=== PATIENT | female | born 1980 | race Caucasian/White ===

== ENCOUNTER 2021-04-24 09:46 | Outpatient (CLI) | payer BC, SELFPAY ==
--- NOTE | 2021-04-24 10:45 | EST_ITS ---
Patient Info Name: Radha King Age: 40 years : 1980 Gender: Female Ht: 64 in Wt: 180 lbs BSA: 1.95 m2 Exam Date: 04/24/2021 11:18 AM Exam Location: [facility] Stress Patient Status: Outpatient Admit Date: 04/24/2021 Staff Ordering Physician: Estela Dennis NP Attending Provider: Estela Dennis NP Exercise Technologist: Ann Marie Bills CT Exercise Physician: Elvis Doss DO Exam Type: CA stress test treadmill Study Info Indications R94.31 - Abnormal electrocardiogram ECG EKG A treadmill exercise stress test was performed. Summary 1. 1. Negative Edgar exercise stress test for ischemic ST changes by ECG criteria. 2. 2. Good functional capacity, achieving 10 METs of workload. 3. 3. Appropriate HR response to exercise. 4. 4. Appropriate HR recovery at 1 minute post exercise. 5. 5. No imaging with stress testing. 6. 6. Patient informed of the above results. Protocol: Edgar Stress ECG Details Stage: REST Duration (min): 2 min : 16 sec Speed (mph): 0.0 Grade (%): 0 HR (bpm): 68 SBP (mmHg): 103 DBP (mmHg): 79 METS: --- Stage: REST Duration (min): 5 min : 16 sec Speed (mph): 0.0 Grade (%): 0 HR (bpm): --- SBP (mmHg): 103 DBP (mmHg): 79 METS: --- Stage: STAGE 1 Duration (min): 1 min : 0 sec Speed (mph): 1.7 Grade (%): 10 HR (bpm): 107 SBP (mmHg): 103 DBP (mmHg): 79 METS: --- Stage: STAGE 1 Duration (min): 2 min : 0 sec Speed (mph): 1.7 Grade (%): 10 HR (bpm): 111 SBP (mmHg): 103 DBP (mmHg): 79 METS: --- Stage: STAGE 1 Duration (min): 3 min : 0 sec Speed (mph): 1.7 Grade (%): 10 HR (bpm): 115 SBP (mmHg): 124 DBP (mmHg): 68 METS: --- Stage: STAGE 2 Duration (min): 1 min : 0 sec Speed (mph): 2.5 Grade (%): 12 HR (bpm): 124 SBP (mmHg): 124 DBP (mmHg): 68 METS: --- Stage: STAGE 2 Duration (min): 2 min : 0 sec Speed (mph): 2.5 Grade (%): 12 HR (bpm): 133 SBP (mmHg): 144 DBP (mmHg): 66 METS: --- Stage: STAGE 2 Duration (min): 3 min : 0 sec Speed (mph): 2.5 Grade (%): 12 HR (bpm): 132 SBP (mmHg): 144 DBP (mmHg): 66 METS: --- Stage: STAGE 3 Duration (min): 1 min : 0 sec Speed (mph): 3.4 Grade (%): 14 HR (bpm): 149 SBP (mmHg): 191 DBP (mmHg): 61 METS: --- Stage: STAGE 3 Duration (min): 2 min : 0 sec Speed (mph): 3.4 Grade (%): 14 HR (bpm): 157 SBP (mmHg): 191 DBP (mmHg): 61 METS: --- Stage: STAGE 3 Duration (min): 3 min : 0 sec Speed (mph): 3.4 Grade (%): 14 HR (bpm): 159 SBP (mmHg): 154 DBP (mmHg): 83 METS: --- Stage: RECOVERY Duration (min): 0 min : 59 sec Speed (mph): 0.0 Grade (%): 0 HR (bpm): 125 SBP (mmHg): 154 DBP (mmHg): 83 METS: --- Stage: RECOVERY Duration (min): 1 min : 59 sec
--- NOTE | 2021-04-24 10:45 | ECHO_ITS ---
Patient Info Name: Radha King Age: 40 years : 1980 Gender: Female Ht: 64 in Wt: 180 lbs BSA: 1.95 m2 HR: 75 bpm BP: 119 / 90 mmHg Technical Quality: Good Exam Date: 04/24/2021 11:53 AM Exam Location: [facility] Pulmonary Patient Status: Outpatient Admit Date: 04/24/2021 Staff Ordering Physician: Estela Dennis NP Accounts Receivable Manager: ANGIE Attending Provider: Estela Dennis NP Exam Type: CA echo doppler color flow Study Info Indications R94.31 - Abnormal electrocardiogram ECG EKG Complete two-dimensional, color flow and Doppler transthoracic echocardiogram is performed. Summary 1. Complete two-dimensional, color flow and Doppler transthoracic echocardiogram is performed. 2. Left ventricular chamber dimension is normal. 3. Left ventricular systolic function is normal, estimated at 60-65%. 4. The left ventricular diastolic function is normal. 5. E/e' 6 is not elevated. 6. No pulmonary hypertension, estimated pulmonary arterial systolic pressure is 16 mmHg. Left Ventricle E/e' 6 is not elevated. Left ventricular chamber dimension is normal. Left ventricular systolic function is normal, estimated at 60-65%. The left ventricular diastolic function is normal. Right Ventricle Right ventricular chamber dimension is normal. Right ventricular systolic function is normal. Left Atria Left atrial chamber dimension is normal. Right Atria Right atrial chamber dimension is normal. Aortic Valve The aortic valve is trileaflet. There is no aortic valve stenosis. There is no aortic valve regurgitation. Pulmonic Valve There is no pulmonic regurgitation. Mitral Valve There is no mitral valve stenosis. There is no mitral valve regurgitation. Tricuspid Valve There is no tricuspid valve regurgitation. No pulmonary hypertension, estimated pulmonary arterial systolic pressure is 16 mmHg. Pericardium/Pleural There is no pericardial effusion. Inferior Vena Cava Normal inferior vena cava with >50% collapse upon inspiration consistent with normal right atrial pressure, 5 mmHg. Aorta The aortic root size at the sinus of Valsalva is normal. Left Ventricular Outflow Tract Name Value Normal LVOT 2D LVOT Diameter 2.2 cm LVOT Doppler LVOT Peak Gradient 3 mmHg LVOT Mean Gradient 1 mmHg LVOT VTI 14 cm LVOT VTI/AV VTI Ratio 0.9 LVOT Stroke Volume 54 ml LVOT CO 12.7 l/min LVOT CI 6.5 l/min/m2 Mitral Valve Name Value Normal MV Doppler MV Decel [place] 252 cm/s2 MV PHT 68 ms MV Area (PHT) 3.2 cm2 4.0-5.0 MV Diastolic Function --
[2021-04-24 11:12] LABS: Basophils Absolute Auto 0.1 K/mm3 (0.0-0.1); Basophils Percent Auto 0.7 % (0.2-1.2); Eosinophils Absolute Auto 0.4 K/mm3 (0-0.3); Eosinophils Percent Auto 2.5 % (0-4.4); Hematocrit 45.9 % (37.0-47.0); Immature Granulocyte Absolute 0.18 K/mm3 (0.00-0.031); Immature Granulocyte Percent A 1.2 % (0-0.5); Lymphocytes Absolute Auto 3.46 K/mm3 (0.9-3.2); Lymphocytes Percent Auto 23.7 % (18.3-44.2); Mean Corpuscular HGB Conc 32.7 g/dl (32-36); Mean Corpuscular Hemoglobin 29.9 pg (26-34); Mean Corpuscular Volume 91.6 fl (80-100); Mean Platelet Volume 9.9 fl (7.4-10.4); Monocytes Absolute Auto 0.9 K/mm3 (0.1-0.6); Monocytes Percent Auto 6.2 % (2.6-8.5); Neutrophils Absolute Auto 9.6 K/mm3 (1.3-6.7); Neutrophils Percent Auto 65.7 % (45.5-73.1); Platelet Count Result 310 k/mm3 (150-375); Red Blood Count 5.01 M/mm3 (4.2-5.4); Red Cell Distribution Width 12.8 % (11.5-14.5); White Blood Count 14.6 K/mm3 (4.5-10.0)
[2021-04-24 11:32] LABS: Alanine Aminotransferase 15 U/L (4-35); Albumin Level 4.4 g/dL (3.5-5.1); Alkaline Phosphatase 86 U/L (38-126); Anion Gap 5 mmol/L (8-16); Aspartate Amino Transferase 23 U/L (14-36); Bilirubin,Total 0.3 mg/dL (0.2-1.3); Blood Urea Nitrogen 22 mg/dL (7-17); Calcium 9.8 mg/dL (8.4-10.2); Carbon Dioxide 32 mmol/L (22-30); Chloride 101 mmol/L (98-107); Cholesterol 192 mg/dL (0-200); Estimated Glomerular Filt Rate > 60; Glucose 105 mg/dL (65-110); HDL Direct 72 mg/dL; Potassium 5.3 mmol/L (3.4-5.0); Sodium 138 mmol/L (137-145); Triglycerides 99 mg/dL (<150)
[2021-04-24 11:35] LABS: Add Urine Microscopic? YES; Appearance Urine Cloudy (Clear); Bacteria Urine Trace /hpf; Bilirubin Urine Negative (Negative); Blood Urine 1+ (Negative); Budding Yeast Urine Present /hpf; Color Urine Yellow (Yellow); Glucose Urine UA Negative (Negative); Ketones Urine Negative (Negative); Leukocyte Esterase Ur 3+ LEU/UL (NEGATIVE); Mucus Urine Rare /lpf; Nitrate Urine Negative (Negative); Protein Urine 1+ mg/dL (Negative); RBC Urine 21-50 /hpf (0-2); Specific Grav Ur 1.021 (1.001-1.035); Squamous Epithelial Cell Urine Many /hpf (Few); Urobilinogen Urine Negative mg/dL (<2.0); WBC Urine 51-75 /hpf (0-3)
[2021-04-24 12:48] LABS: LDL Cholesterol Direct 107 mg/dL
[2021-04-24 13:16] LABS: Hemoglobin A1C 5.4 % (<5.7)
== END 2021-04-24 09:47 | disposition home or self-care (01) ==
PROVIDERS: PCP Family Medicine; Visit Provider Nurse Practitioner Family
DX: Z00.00 Encounter for general adult medical examination without abnormal findings (principal); R73.01 Impaired fasting glucose; Z68.30 Body mass index [BMI] 30.0-30.9, adult; R00.2 Palpitations; R07.9 Chest pain, unspecified; R94.31 Abnormal electrocardiogram [ECG] [EKG]
CPT/HCPCS: 36415; 80053; 80061; 81001; 82607; 82746; 83036; 84443; 85025; 93017; 93306

== ENCOUNTER 2024-07-12 09:41 | Emergency (ER) | payer OTHER, SELFPAY ==
--- NOTE | ~2024-07-12 | CT_ITS ---
CT of the Abdomen and Pelvis: Indication: Hernia pain Technique: 2.5 mm axial scans were obtained through the abdomen and pelvis following intravenous adm inistration of 100 cc of Omnipaque 350. Dose reduction technique was used on this scan by utilizing a utomated exposure control and iterative reconstruction technique. The dose-length product (DLP) was 4 57.92 mGy-cm. Findings: Scans through the lung bases are unremarkable. The liver, spleen, pancreas, gallbladder, adrenals and kidneys are within normal limits. No evidence of aortic aneurysm. No lymphadenopathy. No bowel obstruction or bowel wall thickening. There is no evidence to suggest acute appendicitis. Th ere is a ventral hernia just superior to the umbilicus containing fat and small amount of fluid. Ther e is a small fat-containing umbilical hernia. Images through the pelvis were performed. Urinary bladder unremarkable. No pelvic mass seen. No ascit es. Impression: Ventral hernia superior to the umbilicus containing fat and fluid. Correlate clinically for incarcera tion/strangulation. Small fat-containing umbilical hernia. Reviewed, dictated and finalized at [facility]. IZATION MANAGEMENT NURSE Impression: Ventral hernia superior to the umbilicus containing fat and fluid. Correlate cl inically for incarceration/strangulation. Small fat-containing umbilical hernia.
[2024-07-12 09:55] VITALS: BP 119/74; PULSE 80; RESP 16; TEMP 36.6; O2SAT 100
--- OUTSIDE RECORDS SUMMARY | 2024-07-12 10:19 | XMS_ITS | Clinical Summary ---
Author Organization [facility] ille Address [address] [place] [address] Phone Care Team Providers Care Carbon Rod Inserter Name Role Phone Unavailable Primary Care Provider Unavailabl e Medications No known medications Social History Tobacco Use Types Packs/Day Years Used Date Smoking Tobacco: Every Day Cigarettes Tobacco Cessation:Ready to Q uit: Not Asked; Counseling Given: Not Answered Alcohol Use Standard Drinks/Week Comments Yes 2 (1 standard drink = 0.6 oz pur e alcohol) Feeling Safe Answer Date Recorded Are you in a relationship wi th someone who hurts you emotionally and/or physically? No 09/08/2022 Comments Unknown Sex and Gender Information Value Date Recorded Sex Assigned at Not on file Legal Sex Female 3:03 PM CDT Gender Identity Not on file Sexual Orientation Not on file Last Filed Vital Signs Vital Sign Reading Time Taken Comments Blood Pressure 115/86 09/08/2022 5:00 PM CDT Pulse 96 09/08/2022 5:00 PM CDT Temperature 37.2 ??C (99 ??F) 09/08/2022 3:20 PM CDT Respiratory Rate 18 09/08/2022 5:00 PM CDT Oxygen Saturation 97% 09/08/2022 5:00 PM CDT Inhaled Oxygen Concentration - - Weight 81.6 kg (180 lb) 09/08/2022 3:20 PM CDT Height 162.6 cm (5' 4 ) 09/08/2022 3:20 PM CDT Body Mass Index 30.9 09/08/2022 3:20 PM CDT Plan of Treatment Health Maintenance Due Date Last Done Comments PNEUMOCOCCAL VACCINE 0-64 YE ARS (1 of 2 - PCV) 1985 DTAP/TDAP/TD VACCINES (1 - Tdap) 1998 HEPATITIS B VACCINES (1 of 3 - 19+ 3-dose series) 1998 CERVICAL CANCER SCREENING 2009 BREAST CANCER SCREENING 2019 INFLUENZA VACCINE (#1) 2024 HPV VACCINES Aged Out No longer eligi ble based on patient's age to complete this topic Insurance
--- OUTSIDE RECORDS SUMMARY | 2024-07-12 10:19 | XMS_ITS | Clinical Summary ---
Author Organization [facility] Address [address] [place] [address] Phone Care Team Providers Care Farmworker Cranberry Name Role Phone Huy Blount MD Primary Care Provider [phone] Allergies No known active allergies Medications No known medications Active Problems No known active problems Family History Relation Name Status Comments Father Alive Mother Alive Social History Tobacco Use Types Packs/Day Years Used Date Smoking Tobacco: Every Day Cigarettes Smokeless Tobacco: Never Alcohol Use Standard Drinks/Week Comments Yes 0 (1 standard drink = 0.6 oz pur e alcohol) Comments No Sex and Gender Information Value Date Recorded Sex Assigned at Not on file Legal Sex Female 12:33 AM CDT Gender Identity Not on file Sexual Orientation Not on file Last Filed Vital Signs Vital Sign Reading Time Taken Comments Blood Pressure 102/87 04/15/2021 10:19 AM CDT Pulse 82 04/15/2021 10:19 AM CDT Temperature 36.2 ??C (97.1 ??F) 04/15/2021 10:19 AM C DT Respiratory Rate 17 04/15/2021 10:19 AM CDT Oxygen Saturation 100% 04/15/2021 10:19 AM CDT Inhaled Oxygen Concentration - - Weight 81.6 kg (180 lb) 04/15/2021 10:19 AM CDT Height 162.6 cm (5' 4 ) 04/15/2021 10:19 AM CDT Body Mass Index 30.9 04/15/2021 10:19 AM CDT Plan of Treatment Health Maintenance Due Date Last Done Comments Hepatitis C Virus (HCV) Screening 1980 TdaP Immunization 1980 Hepatitis B Immunization (1 of 3 - 19+ 3-dose series) 1998 Pap Smear 2000 Cervical Cancer Screening (CCS) 2009 HPV/Cotest 2009 Discussion re Starting/Frequ ency of Mammograms 2019 Influenza Immunization (#1) 2024 SARS-COV-2 Immunization ( - season) 2024 Respiratory Syncytial Virus (RSV) Immunization (Adult) (1 - 1-dose 75+ series) 2054 Meningococcal Immunization (ACWY) Aged Out No longer eligible based on patient's age to complete this topic Pneumococcal Immunization Combined Aged Out No longer eligible based on patient's age to complete this topic Rotavirus Immunization Aged Out No lo nger eligible based on patient's age to complete this topic Insurance Care Teams Farmworker Cranberry Relationship Specialty Start Date End Date Huy Blount MD [address] [place] [id number] PCP - General Family Medicine 04/15/21
--- OUTSIDE RECORDS SUMMARY | 2024-07-12 10:19 | XMS_ITS | Referral Summary ---
Author Organization [facility] Address [address] [place] [address] Care Team Providers Care Marine Farmer Name Role Phone Huy Blount MD Primary Care Provider [phone] Allergies Active Allergy Reactions Criticality Noted Date Comments Shrimp Anaphylaxis High 12/14/2023 Medications metroNIDAZOLE (METROGEL) 0.75 % (37.5mg/5 gram) vaginal gelIndications: Bacterial Vaginosis Apply vaginally every night for 5 nights. 70 g 4 Active buPROPion XL (WELLBUTRIN XL) 150 mg 24 hr tablet Take 1 tablet (150 mg total) by mouth every morning 4 Active busPIRone (BUSPAR) 15 mg tablet 4 Active lisdexamfetamin e (VYVANSE) 50 mg capsule Take 1 capsule (50 mg total) by mouth daily 4 Active clonazePAM (KlonoPIN) 0.5 mg tablet Take 1 tablet (0.5 mg total) by mouth every morning 4 Active cephalexin (KEFLEX) 500 mg capsule 4 Active valACYclovir (VALTREX) 1 gram tablet 4 Active diphenhydrAMINE (BENADRYL) 25 mg capsule Take 1 tablet/capsule (25 mg total) by mouth every 6 (six) hours 30 tablet/capsul e 4 Active Active Problems Problem Noted Date Diagnosed Date Anxiety 10/30/2013 Overview (09/20/2016): Anxiety Heartburn 10/30/2013 Overview (09/20/2016): Heartburn Depression 10/30/2013 Overview (09/20/2016): Depression Social History Tobacco Use Types Packs/Day Years Used Date Smoking Tobacco: Every Day Cigarettes Smokeless Tobacco: Never Alcohol Use Standard Drinks/Week Comments Not Currently 0 (1 standard drink = 0.6 oz pur e alcohol) rarely PHQ-2 Answer Date Recorded PHQ-2 Total Score (If total score is 3 or more points, staff should administer the PHQ-9) 0 10/31/2022 Personal Safety Answer Date Recorded Have you ever been in or are you currently in a harmful physical or emotional relationship or is someone making you feel afraid or unsafe? Denies 12/14/2023 Comments No Sex and Gender Information Value Date Recorded Sex Assigned at Not on file Legal Sex Female 12:33 AM HUMAN RESOURCES PROJECT COORDINATOR Gender Identity Female 05/08/2021 2:29 PM HUMAN RESOURCES PROJECT COORDINATOR Sexual Orientation Straight 05/08/2021 2: 29 PM HUMAN RESOURCES PROJECT COORDINATOR Last Filed Vital Signs Vital Sign Reading Time Taken Comments Blood Pressure 118/74 12/14/2023 6:06 PM CDT Pulse 76 12/14/2023 6:06 PM CDT Temperature 36.7 ??C (98 ??F) 12/14/2023 6:05 PM CDT Respiratory Rate 17 12/14/2023 6:06 PM CDT Oxygen Saturation 100% 12/14/2023 6:06 PM CDT Inhaled Oxygen Concentration - - Weight 81.6 kg (180 lb) 12/14/2023 6:06 PM CDT Height 162.6 cm (5' 4 ) 12/14/2023 6:06 PM CDT Body Mass Index 30.9 12/14/2023 6:06 PM CDT Plan of Treatment Not on file Procedures Procedure Name Priority Date/Time Associated Diagnosis Comments HEPATITIS C ANTIBODY Routine 11/06/2023 12:00 PM CDT Screening for STD (sexually transmitted disease) PAP, REFLEX HPV Routine 11/05/2023 4:07 PM CDT Well woman exam SCREENING MAMMOGRAM BILATERAL W QUINCY Schedule Routine, Read Routine (OP Routine) 12/02/2022 10:26 AM CDT Encounter for screening mammogram for malignant neoplasm of breast from Last 3 Months or Most Recently Relevant to Health Maintenance Results * Hepatitis C antibody Blood (11/06/2023 12:00 PM CDT) Hep C Ab NON-REACTI VE NON-REACT MAYO [facility] Comment: HCV antibody was non-reactive. There is no laboratory evidence of HCV infection. In most cases, no further action is required. However, if recent HCV exposure is suspected, a test for HCV RNA (test code 18159) is suggested. For additional information please refer to http://education.Glycobia/faq/BMG99s4 (This link is being provided for informational/ educational purposes only.) Blood 11/06/2023 12:0 0 PM CDT 11/06/2023 12:01 PM CDT Quyen Zimmer NP LAB MICROBIOLOGY - GENERAL ORDER JENNIFER Final Result JONATHAN [facility] [address] [place] [address] * Pap, reflex HPV (11/05/2023 4:07 PM CDT) CLINICAL INFORMATION: Jonathan De Oliveira Comment:Routine exam LMP Jonathan De Oliveira Comment:[id number] Previous Pap Jonathan De Oliveira Comment:NONE GIVEN Prev. Bx Jonathan De Oliveira Comment:NONE GIVEN SOURCE: Jonathan De Oliveira Comment:Cervix, Endocervix Pap, specimen adequacy Jonathan De Oliveira Comment: Satisfactory for evaluation. Endocervical/transformation zone component absent. HPV interp Jonathan De Oliveira Comment: Cytology Results: Negative for intraepithelial lesion or malignancy. COMMENTS Jonathan De Oliveira Comment: This Pap test has been evaluated with computer assisted technology. Machine Sand Mixer Joss Davis Comment: BES, CT(ASCP) CT screening location: [place] [facility] [place] [address] Comment [facility] lizbeth De Oliveira Comment: EXPLANATORY NOTE: The Pap is a screening test for cervical cancer. It is not a diagnostic test and is subject to false negative and false positive results. It is most reliable when a satisfactory sample, regularly obtained, is submitted with relevant clinical findings and history, and when the Pap result is evaluated along with historic and current clinical information. Thin prep 11/05/2023 4:07 PM CDT 11/06/2023 3:24 AM CDT us Quyen Zimmer ON AIR HOST LAB CYTOLOGY ORDERABLES Final Re sult [facility] [address] [address] [place] [address] * (ABNORMAL) Screening Mammogram Bilateral W Quin[place] (12/02/2022 10:26 AM CDT) Anatomical Region Laterality Modality Breast Bilateral Mammography 12/02/2022 10:2 9 AM CDT Impressions 12/02/2022 10:29 AM CDT 1. ??Indeterminate asymmetry in the outer right breast at middle depth. ??Further evaluation with right unilateral diagnostic mammogram and possible sonogram is recommended. 2. ??No suspicious findings are seen in the left breast. ??Annual screening mammography of the left breast is recommended in 12 months. BI-RADS: 0 - Additional imaging evaluation is necessary. The patient has been or will be contacted. Electronically signed by: IMER GIL Narrative 12/02/2022 10:29 AM CDT EXAMINATION: SCREENING MAMMOGRAM BILATERAL W QUINCY ORDERING HEALTHCARE PROVIDER: QUYEN ZIMMER HISTORY: Routine screening mammography. COMPARISON: ??None available. TECHNIQUE: CC and MLO views of both breasts were obtained with digital technique using digital breast tomosynthesis with C view. Computer aided detection was utilized. FINDINGS: DENSITY: The breasts are heterogeneously dense, which may obscure small masses. BREASTS: There is an asymmetry in the outer right breast at middle depth, suggesting a possible mass with partially obscured and partially circumscribed margins. ??No definite correlate is seen on the MLO view. ??There are no suspicious findings in the left breast. us Quyen Zimmer ON AIR HOST IMG MAMMO PROCEDURES Final Resul t from Last 3 Months or Most Recently Relevant to Health Maintenance Insurance Manufacturers' Inventory [place] Manufacturers' [place] Care Teams Marine Farmer Relationship Specialty Start Date End Date Huy Blount MD [address] [address] PCP - General 08/05/19
--- OUTSIDE RECORDS SUMMARY | 2024-07-12 10:19 | XMS_ITS | Clinical Summary ---
Author Organization [facility] Address [address] [place] [address] Care Team Providers Care Title Assistant Name Role Phone Huy Blount MD Primary Care Provider [phone] Allergies Active Allergy Reactions Criticality Noted Date [...] (09/20/2016): Heartburn Depression 10/30/2013 Overview (09/20/2016): Depression Surgical History Surgery Date Site/Laterality Comments OTHER SURGICAL HISTORY 06/16/1999 - 06/15/2000 : 17 hr labor OTHER SURGICAL HISTORY 06/16/2002 - 06/15/2003 : 15 hr labor TUBAL LIGATION 06/16/2003 - 06/15/2004 OTHER SURGICAL HISTORY 06/16/2006 - 06/15/2007 tubal reversal Medical History Medical History Date Comments Hx Other Medical 1999 ; Outc ome: 40 week 9 lb(s) 6 oz Male Hx Other Medical 2002 ; Outc ome: 39 1/2 week 9 lb(s) 1 oz Male Family History Medical History Relation Name Comments Hyperlipidemia Father Hyperlipidemi a; Hypertension Father Hypertension; Relation Name Status Comments Father Social History Tobacco Use Types Packs/Day Years [...] on file Legal Sex Female 12:33 AM SALESPERSON SHEET MUSIC Gender Identity Female 05/08/2021 2:29 PM SALESPERSON SHEET MUSIC Sexual Orientation Straight 05/08/2021 2: 29 PM SALESPERSON SHEET MUSIC Obstetrics History Para Term AB IAB SAB Ectopic Multiple Livin g Live Births 5 2 2 3 3 2 2 Date Outcome GA Total Labor Labor/2nd/3rd Weight Sex Type Anes PTL Meghan A1 A5 Name Clin SAB SAB SAB 06/04 00 Term M Vag-S pont Epidura l N Living 05/05 05 Term M Vag-S pont Epidura l N Living Last Filed Vital Signs Vital Sign Reading [...] 12/14/2023 6:06 PM CDT Plan of Treatment Health Maintenance Due Date Last Done Comments Pneumococcal vaccine <65 (1 of 2 - PCV) 1985 DTaP/Tdap/Td Vaccine (1 - Tdap) 1990 Varicella Vaccines (1 of 2 - 13+ 2-dose series) 1992 Hepatitis B Screening 1997 Depression Screening 11/01/2023 10/31/2022, 08/28/2021, 08/05/2019 Breast Cancer Screening-Mammogram 12/03/2023 12/02/2022 Influenza Vaccine (#1) 2024 Cervical Cancer Screening 11/04/20242023, 10/31/2022, 08/28/2021, Additional history exists Regular Well Visit/Exam 18-64 11/04/2024 11/05/2023, 10/31/2022, 08/28/2021, Additional history exists Hepatitis C Screening Completed 11/06/2023 , 07/21/2023, 08/30/2021, Additional history exists HPV Vaccines Aged Out No longer eligi ble based on patient's age to complete this topic Procedures Procedure Name Priority Date/Time Associated Diagnosis [...] Hep C Ab NON-REACTI VE NON-REACT MAYO [facility] Comment: HCV antibody was non-reactive. There is no laboratory evidence of HCV infection. In most cases, no further action is required. However, if recent HCV exposure is suspected, a test for HCV RNA (test code 65088) is suggested. For additional information please refer to http://education.Jamglue/faq/LZM30y6 (This link is being provided for informational/ educational purposes only.) Blood 11/06/2023 12:0 0 PM CDT 11/06/2023 12:01 PM CDT Quyen Zimmer NP LAB MICROBIOLOGY - GENERAL ORDER JENNIFER Final Result JONATHAN Garcia [facility] [address] [place] [address] * Pap, reflex HPV (11/05/2023 4:07 PM CDT) Pathologist [facility] CLINICAL INFORMATION: Jonathan De Oliveira Comment:Routine exam LMP Jonathan De Oliveira Comment:[id number] Previous Pap Jonathan De Oliveira Comment:NONE GIVEN Prev. Bx Jonathan De Oliveira Comment:NONE GIVEN SOURCE: Jonathan De Oliveira Comment:Cervix, Endocervix Pap, specimen adequacy Jonathan De Oliveira Comment: Satisfactory for evaluation. Endocervical/transformation zone component absent. HPV interp Jonathan De Oliveira Comment: Cytology Results: Negative for intraepithelial lesion or malignancy. COMMENTS Jonathan De Oliveira Comment: This Pap test has been evaluated with computer assisted technology. Paraffin Plant Sweater Operator Joss Davis Comment: BES, CT(ASCP) CT screening location: [place] [address] [place], [place] [address] Comment Jonathan De Oliveira Comment: EXPLANATORY NOTE: The Pap [...] 11/06/2023 3:24 AM CDT us Quyen Zimmer NP LAB CYTOLOGY ORDERABLES Final Re sult [facility] [address] [place] [address] * (ABNORMAL) Screening Mammogram Bilateral W Quin[place] [...] will be contacted. Electronically signed by: IMER Quarles 12/02/2022 10:29 AM CDT EXAMINATION: SCREENING MAMMOGRAM [...] in the left breast. us Quyen Zimmer NP IMG MAMMO PROCEDURES Final Resul t from Last 3 Months or Most Recently Relevant to Health Maintenance Insurance [employer] [place] [employer] [place] Care Teams Title Assistant Relationship Specialty Start Date End Date Huy Blount MD [address] [address] PCP - General 08/05/19
--- OUTSIDE RECORDS SUMMARY | 2024-07-12 10:19 | XMS_ITS | Clinical Summary ---
Author Organization [facility] Address [address] [place] [address]. [place], [place] [id number] [place] [address] Care Team Providers Care Bread Slicer Machine Name Role Phone Unavailable Primary Care Provider Unavailabl e Allergies No known active allergies Medications No known medications Family History Medical History Relation Comments None Neg Hx Social History Tobacco Use Types Packs/Day Years Used Date Smoking Tobacco: Every Day Cigarettes Smokeless Tobacco: Never Alcohol Use Standard Drinks/Week Comments No 0 (1 standard drink = 0.6 oz pur e alcohol) AUDIT-C Answer Date Recorded Frequency of Alcohol Consumption Never 03/02/2018 Average Number of Drinks Not on file 018 Frequency of Binge Drinking Not on file 02/14 Comments Unknown Sex and Gender Information Value Date Recorded Sex Assigned at Not on file Legal Sex Female 8:53 AM CDT Gender Identity Not on file Sexual Orientation Not on file Last Filed Vital Signs Vital Sign Reading Time Taken Comments Blood Pressure 116/73 03/02/2018 9:02 AM CDT Pulse 90 03/02/2018 9:02 AM CDT Temperature 36.3 ??C (97.3 ??F) 03/02/2018 9:02 AM CD T Respiratory Rate 16 03/02/2018 9:02 AM CDT Oxygen Saturation 99% 03/02/2018 9:02 AM CDT Inhaled Oxygen Concentration - - Weight 72.6 kg (160 lb) 03/02/2018 9:02 AM CDT Height 163.2 cm (5' 4.25 ) 03/02/2018 9:02 AM CD T Body Mass Index 27.25 03/02/2018 9:02 AM CDT Plan of Treatment Health Maintenance Due Date Last Done Comments Cervical Cancer Screening Pa p Smear (Age 30 to 64) Every 3 Years 1979 Annual Physical 1982 Pneumococcal Vaccine: Pediat rics (0 to 5 Years) and At-Risk Patients (6 to 64 Years) (1 of 2 - PCV) 1985 Hepatitis C 1997 DTaP, Tdap and Td Vaccines ( 1 - Tdap) 1998 Hepatitis B Vaccines (1 of 3 - 19+ 3-dose series) 1998 Cervical Cancer Screening Pa p with HPV Testing (Age 30 to 64) Every 5 Years 2009 Cervical Cancer Screening with HPV 2009 Mammogram Screening 2019 COVID-19 Vaccine (2023-2 5 season) 2024 Influenza Adult (#1) 2024 HPV Vaccines Aged Out No longer eligi ble based on patient's age to complete this topic Meningococcal B Vaccine Aged Out No l onger eligible based on patient's age to complete this topic Meningococcal Vaccine Aged Out No howie dedrick eligible based on patient's age to complete this topic RSV Immunizations Under 20 Months Aged Out No longer eligible based on patient's age to complete this topic Insurance MEDICAL REIMBURSEMENTS OF RACHAEL
[2024-07-12 11:04] VITALS: BP 121/96; PULSE 79; RESP 17; O2SAT 100
[2024-07-12 11:06] LABS: BEDSIDEPREGUCG Negative (Negative)
[2024-07-12] MEDS: MORPHINE SULFATE (*CRX) 4 MG/ML INJ IV PUSH (11:06)
[2024-07-12 11:16] LABS: Basophils Absolute Auto 0.1 K/mm3 (0.0-0.1); Basophils Percent Auto 0.9 % (0.2-1.2); Eosinophils Absolute Auto 0.3 K/mm3 (0-0.3); Eosinophils Percent Auto 3.2 % (0-4.4); Hematocrit 41.6 % (37.0-47.0); Hemoglobin 13.4 g/dL (12.0-15.0); Immature Granulocyte Absolute 0.02 K/mm3 (0.00-0.031); Immature Granulocyte Percent A 0.2 % (0-0.5); Lymphocytes Absolute Auto 2.35 K/mm3 (0.9-3.2); Lymphocytes Percent Auto 27.2 % (18.3-44.2); Mean Corpuscular HGB Conc 32.2 g/dl (32-36); Mean Corpuscular Hemoglobin 30.6 pg (26-34); Mean Platelet Volume 10.2 fl (7.4-10.4); Monocytes Absolute Auto 0.6 K/mm3 (0.1-0.6); Monocytes Percent Auto 6.5 % (2.6-8.5); Neutrophils Absolute Auto 5.4 K/mm3 (1.3-6.7); Platelet Count Result 244 k/mm3 (150-375); Red Blood Count 4.38 M/mm3 (4.2-5.4); Red Cell Distribution Width 12.7 % (11.5-14.5); White Blood Count 8.6 K/mm3 (4.5-10.0)
[2024-07-12 11:25] LABS: Lactic Acid Reflex 0.9 mmol/L (0.7-2.0)
[2024-07-12 11:26] LABS: Alanine Aminotransferase 11 U/L (6-35); Albumin Level 3.9 g/dL (3.5-5.1); Alkaline Phosphatase 63 U/L (38-126); Anion Gap 6 mmol/L (4-12); Aspartate Amino Transferase 18 U/L (14-36); Bilirubin,Total 0.5 mg/dL (0.2-1.3); Blood Urea Nitrogen 18 mg/dL (7-17); Calcium 8.7 mg/dL (8.4-10.2); Carbon Dioxide 26 mmol/L (22-30); Chloride 107 mmol/L (98-107); Estimated CRCL calculation 77 ml/min; Estimated Glomerular Filt Rate > 60; Glucose 93 mg/dL (65-110); Potassium 4.4 mmol/L (3.4-5.0); Sodium 139 mmol/L (137-145)
--- OUTSIDE RECORDS SUMMARY | 2024-07-12 12:12 | XMS_ITS | Clinical Summary ---
Author Organization [facility] Address [address] [place] [address] Phone Care Team Providers Care Kiln Tester Name Role Phone Unavailable Primary Care Provider [...]
--- OUTSIDE RECORDS SUMMARY | 2024-07-12 12:12 | XMS_ITS | Referral Summary ---
Author Organization [facility] Address [address] [place] [address] Care Team Providers Care Suture Winder Hand Name Role Phone Huy Blount MD Primary Care Provider [phone] Allergies Active Allergy Reactions Criticality Noted Date [...] on file Legal Sex Female 12:33 AM LEGAL RECEPTIONIST Gender Identity Female 05/08/2021 2:29 PM LEGAL RECEPTIONIST Sexual Orientation Straight 05/08/2021 2: 29 PM LEGAL RECEPTIONIST Last Filed Vital Signs Vital Sign Reading [...] Hep C Ab NON-REACTI VE NON-REACT MAYO [employer] Comment: HCV antibody was non-reactive. There is no laboratory evidence of HCV infection. In most cases, no further action is required. However, if recent HCV exposure is suspected, a test for HCV RNA (test code 49618) is suggested. For additional information please refer to http://education.[employer]/faq/UPN39z5 (This link is being provided for informational/ educational purposes only.) Blood 11/06/2023 12:0 0 PM CDT 11/06/2023 12:01 PM CDT Quyen Zimmer NP LAB MICROBIOLOGY - GENERAL ORDER JENNIFER Final Result JONATHAN [facility] [address] [place] [address] * Pap, reflex HPV (11/05/2023 4:07 PM CDT) CLINICAL INFORMATION: Jonathan De Oliveira Comment:Routine exam LMP Jonathan De Oliveira Comment:[id number] Previous Pap Jonathan De Oliveira Comment:NONE GIVEN Prev. Bx Jonathan De Oliveira Comment:NONE GIVEN SOURCE: Jonathan De Oliveira Comment:Cervix, Endocervix Pap, specimen adequacy Jonathan De Oliveira Comment: Satisfactory for evaluation. Endocervical/transformation zone component absent. HPV interp Jonathan De Oliveira Comment: Cytology Results: Negative for intraepithelial lesion or malignancy. COMMENTS Jonathan De Oliveira Comment: This Pap test has been evaluated with computer assisted technology. Glass Wool Blanket Machine Feeder Joss Davis Comment: BES, CT(ASCP) CT screening location: [facility] [address] [place] [address] Comment [facility] [facility] lizbeth De Oliveira Comment: EXPLANATORY NOTE: The [...] 11/06/2023 3:24 AM CDT us Quyen Zimmer ADMIN ASST LAB CYTOLOGY ORDERABLES Final Re sult JONATHAN [facility] [place] [address] [address] [place] [address] * (ABNORMAL) Screening Mammogram Bilateral W [place] [...] in the left breast. us Quyen Zimmer ADMIN ASST IMG MAMMO PROCEDURES Final Resul t from Last 3 Months or Most Recently Relevant to Health Maintenance Insurance FlipKey PA FlipKey PA Care Teams Suture Winder Hand Relationship Specialty Start Date End Date Huy Blount MD [address] [address] PCP - General 08/05/19
--- OUTSIDE RECORDS SUMMARY | 2024-07-12 12:12 | XMS_ITS | Clinical Summary ---
Author Organization [facility] Address [address] [place] [address]. [place], [place] [address] [place] [id number] Care Team Providers Care Benefits Coordinator Name Role Phone Unavailable Primary Care Provider [...]
--- OUTSIDE RECORDS SUMMARY | 2024-07-12 12:12 | XMS_ITS | Clinical Summary ---
Author Organization [facility] Address [address] [place] [address] Phone Care Team Providers Care Poacher Wringer Operator Name Role Phone Huy Blount MD Primary Care Provider [phone] Allergies No known active allergies Medications No [...] to complete this topic Insurance Care Teams Poacher Wringer Operator Relationship Specialty Start Date End Date Huy Blount MD [address] [place] [address] PCP - General Family Medicine 04/15/21
--- OUTSIDE RECORDS SUMMARY | 2024-07-12 12:12 | XMS_ITS | Clinical Summary ---
Author Organization [facility] Building B Address [address] [place] [address] Care Team Providers Care Flower Buncher Or Picker Name Role Phone Huy Blount MD Primary Care Provider [phone] [phone] Allergies Active Allergy Reactions Criticality Noted Date [...] on file Legal Sex Female 12:33 AM HARNESS PLACER Gender Identity Female 05/08/2021 2:29 PM HARNESS PLACER Sexual Orientation Straight 05/08/2021 2: 29 PM HARNESS PLACER Obstetrics History Para Term AB IAB SAB [...] Hep C Ab NON-REACTI VE NON-REACT MAYO [facility] Comment: HCV antibody was non-reactive. There is no laboratory evidence of HCV infection. In most cases, no further action is required. However, if recent HCV exposure is suspected, a test for HCV RNA (test code 40772) is suggested. For additional information please refer to http://education.Nitro/faq/WJO68e6 (This link is being provided for informational/ educational purposes only.) Blood 11/06/2023 12:0 0 PM CDT 11/06/2023 12:01 PM CDT Quyen Zimmer NP LAB MICROBIOLOGY - GENERAL ORDER JENNIFER Final Result JONATHAN [facility] [employer] [address] [place] [address] * Pap, reflex HPV (11/05/2023 4:07 PM CDT) Pathologist [facility] [place] CLINICAL INFORMATION: Jonathan De Oliveira Comment:Routine exam LMP Jonathan De Oliveira Comment:[id number] Previous Pap Jonathan De Oliveira Comment:NONE GIVEN Prev. Bx Jonathan De Oliveira Comment:NONE GIVEN SOURCE: Jonathan De Oliveira Comment:Cervix, Endocervix Pap, specimen adequacy Jonathan De Oliveira Comment: Satisfactory for evaluation. Endocervical/transformation zone component absent. HPV interp Jonathan De Oliveira Comment: Cytology Results: Negative for intraepithelial lesion or malignancy. COMMENTS Jonathan De Oliveira Comment: This Pap test has been evaluated with computer assisted technology. 2 Year Olds Preschool Teacher Joss Davis Comment: BES, CT(ASCP) CT screening location: [place] [address] [place], [place] [address] Comment Jonathan De Oliveira Comment: EXPLANATORY NOTE: [...] NP LAB CYTOLOGY ORDERABLES Final Re sult [facility] [address] [place] [address] * (ABNORMAL) Screening Mammogram Bilateral W [place] [...] Most Recently Relevant to Health Maintenance Insurance [employer] [place] [employer] [place] Care Teams Flower Buncher Or Picker Relationship Specialty Start Date End Date Huy Blount MD [address] [address] PCP - General 08/05/19
[2024-07-12 12:31] LABS: Add Urine Microscopic? YES; Appearance Urine Cloudy (Clear); Bacteria Urine 2+ /hpf; Bilirubin Urine Negative (Negative); Blood Urine 1+ (Negative); Color Urine Yellow (Yellow); Glucose Urine UA Negative (Negative); Ketones Urine Negative (Negative); Leukocyte Esterase Ur Negative LEU/UL (Negative); Nitrate Urine Negative (Negative); Non Pathogenic Casts 0-2; Protein Urine Negative (Negative); RBC Urine 0-2 /hpf (0-2); Specific Grav Ur 1.023 (1.001-1.035); Squamous Epithelial Cell Urine Moderate /hpf (Few); Urobilinogen Urine 0.2 mg/dL (<2.0); WBC Urine 0-5 /hpf (0-3); pH Urine 5.5 (5.0-9.0)
--- NOTE | 2024-07-12 12:51 | ED_ITS ---
HPI - Abdominal Pain General Chief Complaint: Abdominal Pain Stated Complaint: abdominal pain, hernia Time Seen by Provider: 07/12/24 10:40 History of Present Illness HPI narrative: Patient is a 43-year-old female who presents ER with hernia. Reports she has had a small bump superior to her navel area for years but over last few days is significantly grown in size and is tender to touch. She is passing gas and having normal bowel movements. No vomiting. No fevers or chills or sweats. Has not had issues like this previously. She has not been able to push it back into her own body. Related Data Allergies Allergy/AdvReac Type Severity Reaction Status Date / Time shellfish derived Allergy Severe Anaphylaxis Verified 07/12/24 16:18 Review of Systems 2 Review of Systems: All systems reviewed & are unremarkable except as noted in HPI and below Constitutional: Constitutional: Reports no additional constitutional complaints Cardiovascular: Cardiovascular: Reports no additional cardiovascular complaints Respiratory: Respiratory: Reports no additional respiratory complaints Gastrointestinal: Gastrointestinal: Reports no additional gastrointestinal complaints Musculoskeletal: Musculoskeletal: Reports no additional musculoskeletal complaints [facility] Past Medical History Medical History Tobacco abuse Fever blister ADHD Migraines Arthritis Anxiety Serum potassium elevated Palpitations Abnormal EKG Chest pain Elevated fasting glucose BMI 30.0-30.9,adult Family History Family History Father Hypertension Mother Hypertension Sibling Depression Grandparent Alcoholism Son Depression Anxiety Social History Social History Smoking packs per day: 1 Smoking cigarettes per day: 20.0 Years smoked: 30 Smoking pack-years: 30.00 Smoking status: Current every day smoker Tobacco type: cigarettes Second hand tobacco smoke exposure: Yes Alcohol intake: current Drinks per week: 2 Alcohol use details: socially Substance use: current Substance use type: marijuana Living arrangements: with family Occupation/Education: occupation Gender identity (if verbalized by the patient): Female Sexual Orientation (if Verbalized by the Patient): Straight or Heterosexual Spiritual care concerns: No Agree to blood products: Yes Exam 2 Narrative: GENERAL: Well-appearing, well-nourished, and in no acute distress. HEAD: Normocephalic, atraumatic. ENT: Mucous membranes moist. CHEST: Clear to auscultation. No respiratory distress. HEART: Regular rate and rhythm. Normal peripheral pulses. ABDOMEN: Soft, nontender, nondistended. For mass superior to the umbilicus that is non reducible. EXTREMITIES: Normal range of motion. No edema. SKIN: Warm, dry, no rash. NEURO: Alert and oriented x3. PSYCH: Normal mood and affect. Course Course Emergency Course: Discussed case with Dr. Bermudez who has been to the bedside to evaluate the patient. He would like the patient to receive stool softeners and pain medication for home. Patient will be placed in an abdominal binder. She will be scheduled for surgery on July 15. Vital Signs Vital signs: Vital Signs Temperature 97.9 F 07/12/24 09:55 Pulse Rate 80 07/12/24 09:55 Respiratory Rate 16 07/12/24 09:55 Blood Pressure 119/74 07/12/24 09:55 Pulse Oximetry 100 07/12/24 09:55 Oxygen Delivery Room Air 07/12/24 09:55 Temperature 97.9 F 07/12/24 09:55 Pulse Rate 66 07/12/24 13:24 Respiratory Rate 18 07/12/24 13:24 Blood Pressure 113/82 07/12/24 13:24 Pulse Oximetry 100 07/12/24 13:24 Oxygen Delivery Room Air 07/12/24 09:55 MDM - Abdominal Pain Lab Data 07/12/24 11:06 07/12/24 11:06 Labs: Lab Results 07/12/24 07/12/24 07/12/24 Range/Units 11:04 11:06 12:21 WBC 8.6 (4.5-10.0) K/mm3 RBC 4.38 (4.2-5.4) M/mm3 Hgb 13.4 (12.0-15.0) g/dL Hct 41.6 (37.0-47.0) % MCV 95.0 (80-100) fl MCH 30.6 (26-34) pg MCHC 32.2 (32-36) g/dl RDW 12.7 (11.5-14.5) % Plt Count 244 (150-375) k/mm3 MPV 10.2 (7.4-10.4) fl Immature Gran % (Auto) 0.2 (0-0.5) % Neut % (Auto) 62.0 (45.5-73.1) % Lymph % (Auto) 27.2 (18.3-44.2) % [place] % (Auto) 6.5 (2.6-8.5) % Eos % (Auto) 3.2 (0-4.4) % Baso % (Auto) 0.9 (0.2-1.2) % Lymph # (Auto) 2.35 (0.9-3.2) K/mm3 [place] # (Auto) 0.6 (0.1-0.6) K/mm3 Eos # (Auto) 0.3 (0-0.3) K/mm3 Baso # (Auto) 0.1 (0.0-0.1) K/mm3 Abs Immat Gran (auto) 0.02 (0.00-0.031) K/mm3 Absolute Neuts (auto) 5.4 (1.3-6.7) K/mm3 Absolute Nucleated RBC 0.000 (0.0-0.012) K/mm3 Nucleated RBC % 0.0 (0.0-0.2) % Sodium 139 (137-145) mmol/L Potassium 4.4 (3.4-5.0) mmol/L Chloride 107 (98-107) mmol/L Carbon Dioxide 26 (22-30) mmol/L Anion Gap 6 (4-12) mmol/L BUN 18 H (7-17) mg/dL Creatinine 0.83 (0.7-1.0) mg/dL Estim Creat Clear Calc 77 ml/min Estimated GFR > 60 (59 - ) Glucose 93 (65-110) mg/dL Lactic Acid 0.9 (0.7-2.0) mmol/L Calcium 8.7 (8.4-10.2) mg/dL Total Bilirubin 0.5 (0.2-1.3) mg/dL AST 18 (14-36) U/L ALT 11 (6-35) U/L Alkaline Phosphatase 63 (38-126) U/L Total Protein 7.0 (6.3-8.2) g/dL Albumin 3.9 (3.5-5.1) g/dL Urine Color Yellow (Yellow) Urine Appearance Cloudy H (Clear) Urine pH 5.5 (5.0-9.0) Ur Specific [place] 1.023 (1.001-1.035) Urine Protein Negative (Negative) mg/dL Urine Glucose (UA) Negative (Negative) mg/dL Urine Ketones Negative (Negative) mg/dL Ur Blood (Man) 1+ H (Negative) Urine Nitrate Negative (Negative) Urine Bilirubin Negative (Negative) Urine Urobilinogen 0.2 (<2.0) mg/dL Leukocyte Esterase Rfl Negative (Negative) DASIA/UL Urine RBC 0-2 (0-2) /hpf Urine WBC 0-5 (0-3) /hpf Ur Squamous Epith Cells Moderate (Few) /hpf Urine Bacteria 2+ H /hpf Urine Casts 0-2 POC Urine HCG, Qual Negative (Negative) Imaging Data Radiologist's impression: ITS Impressions Abdomen/Pelvis CT 07/12/24 12:22 Impression: Ventral hernia superior to the umbilicus containing fat and fluid. Correlate clinically for incarceration/strangulation. Small fat-containing umbilical hernia. Discharge Plan Discharge Clinical Impression: Incarcerated ventral hernia Patient Disposition: Home, Self-Care Condition: Stable Instructions: Ventral Hernia (ED) Additional Instructions: Return to the emergency department if you develop severe abdominal pain, severe nausea and vomiting to the point where you are unable to keep down fluids, if you develop chest pain or difficulty breathing, blood in your stool, dizziness or fainting, or if you develop any other new or concerning symptoms as these could be signs of more serious medical illness. Try to stay well hydrated. Patient Language: Barbadian Prescriptions: No Action quetiapine 25 mg tablet 25 mg PO QHS PRN (Reason: insomnia) Qty: 30 11RF valacyclovir [Valtrex] 1 gram tablet 2,000 mg PO Q12H PRN (Reason: fever blister) Qty: 30 1RF Rx Instructions: take 2 tab q12hrs x1 day at symptoms onset lisdexamfetamine 50 mg capsule 50 mg PO DAILY Qty: 30 0RF Follow-up/Referrals: Delia Abreu MD [Physician] - 3 Days Huy Blount MD [Primary Care Provider] -
[2024-07-12] MEDS: HYDROmorphone HCL INJ (*CRX) 1 MG/ML SYR 0.5 MG IV PUSH (13:23)
[2024-07-12 13:24] VITALS: BP 113/82; PULSE 66; RESP 18; O2SAT 100
--- NOTE | 2024-07-12 14:22 | P.CONGS_ITS ---
Assessment and Plan Assessment and plan (1) Incarcerated ventral hernia: Code(s): K43.6 - Other and unspecified ventral hernia with obstruction, without gangrene Status: Acute Assessment and Plan: will set up for urgent robotic assisted incarcerated incisional hernia repair with mesh later this week, patient would like to go home and return for the surgery, her exam has improved with pain medicine, will DC home with p.o. analgesia, abdominal binder, light activity restrictions, patient to return on for repair History of Present Illness Consult details Consult date: 07/12/24 Reason for consult: abdominal pain Requesting physician: Surya Jimenez MD Narrative: The patient is a 43-year-old female presenting to the emergency department complaining of severe periumbilical abdominal pain. She reports the pain has been worsening and constant over the last 3-4 days. The patient reports that she has a known incisional hernia in the supraumbilical area from previous tubal ligation. The patient reports the hernia has been present for years and has been largely asymptomatic. The patient reports that over the last few days there has been a progressively worsening hard knot in the area associated with pain. The patient denies any other associated symptoms. She reports normal bowel function. The patient has been able to eat without issue. Workup in the emergency department, including imaging, is significant for a incarcerated supraumbilical incisional hernia. Review of Systems 2 Review of Systems: All systems reviewed & are unremarkable except as noted in HPI and below PMFSH Past Medical History Medical History Tobacco abuse Fever blister ADHD Migraines Arthritis Anxiety Serum potassium elevated Palpitations Abnormal EKG Chest pain Elevated fasting glucose BMI 30.0-30.9,adult Family History Family History Father Hypertension Mother Hypertension Sibling Depression Grandparent Alcoholism Son Depression Anxiety Social History Social History Smoking packs per day: 1 Smoking cigarettes per day: 20.0 Years smoked: 30 Smoking pack-years: 30.00 Smoking status: Current every day smoker Tobacco type: cigarettes Second hand tobacco smoke exposure: Yes Alcohol intake: current Drinks per week: 2 Alcohol use details: once a month maybe, Substance use: current Substance use type: marijuana Living arrangements: with family Occupation/Education: occupation Gender identity (if verbalized by the patient): Female Sexual Orientation (if Verbalized by the Patient): Straight or Heterosexual Spiritual care concerns: No Agree to blood products: Yes Meds Home Medications and Allergies Home Medications ?Medication ?Instructions ?Recorded ?Confirmed ?Type citalopram 10 mg tablet 10 mg PO DAILY #30 tabs 01/07/24 04/06/24 Rx buspirone 15 mg tablet 7.5 mg (1/2 x 15 mg) PO BID PRN 04/06/24 04/06/24 Rx anxiety #30 tabs quetiapine 25 mg tablet 25 mg PO QHS PRN insomnia #30 tabs 04/06/24 04/06/24 Rx valacyclovir 1 gram tablet 2,000 mg (2 x 1 gram) PO Q12H PRN 06/02/24 Rx (Valtrex) fever blister #30 tabs lisdexamfetamine 50 mg capsule 50 mg PO DAILY #30 caps 07/01/24 Rx docusate sodium 100 mg capsule 100 mg PO BID #14 caps 07/12/24 Rx (Col-Rite) hydrocodone 5 mg-acetaminophen 325 1 tablet PO Q6H PRN pain #14 tabs 07/12/24 Rx mg tablet Allergies Allergy/AdvReac Type Severity Reaction Status Date / Time shellfish derived Allergy Severe Anaphylaxis Verified 07/12/24 11:03 Vital Signs Vital Signs - 24 hr 07/12/24 09:55 07/12/24 11:04 07/12/24 13:24 Temperature 36.6 C Pulse Rate 80 79 66 Respiratory Rate 16 17 18 Blood Pressure 119/74 121/96 H 113/82 Pulse Oximetry 100 100 100 Oxygen Delivery Room Air Exam 2 Const: General: cooperative, comfortable, no acute distress and overweight HENMT: Head: normal to inspection, normocephalic and atraumatic Eyes: General: appearance normal, both eyes and all related structures Neck: Neck: normal visual inspection, full ROM and no lymphadenopathy Resp: Auscultation: clear to auscultation bilaterally Cardio: Rate: regular rate Rhythm: regular rhythm GI: Inspection: normal to inspection and visible herniation GI Palp: Yes abdominal tenderness, Yes Soft to palpation, Yes Tenderness to palpation present (GI), No Guarding due to palpation present (GI), No Rigid due to palpation and Yes Hernia present Other: incarcerated supraumbilical incisional hernia measuring approximately 3.5 cm, tenderness to palpation, no overlying skin changes Skin: General skin exam: normal color and no rashes or lesions noted Neuro: General: patient oriented x3 and CN's II-XI intact bilaterally Extrem: General: normal to inspection and full ROM Results Labs 07/12/24 11:06 07/12/24 11:06 Labs: Abnormal lab results 07/12/24 07/12/24 Range/Units 11:06 12:21 BUN 18 H (7-17) mg/dL Urine Appearance Cloudy H (Clear) Ur Blood (Man) 1+ H (Negative) Urine Bacteria 2+ H /hpf Diabetes panel 07/12/24 Range/Units 11:06 Sodium 139 (137-145) mmol/L Potassium 4.4 (3.4-5.0) mmol/L Chloride 107 (98-107) mmol/L Carbon Dioxide 26 (22-30) mmol/L BUN 18 H (7-17) mg/dL Creatinine 0.83 (0.7-1.0) mg/dL Glucose 93 (65-110) mg/dL Calcium 8.7 (8.4-10.2) mg/dL AST 18 (14-36) U/L ALT 11 (6-35) U/L Alkaline Phosphatase 63 (38-126) U/L Total Protein 7.0 (6.3-8.2) g/dL Albumin 3.9 (3.5-5.1) g/dL Calcium panel 07/12/24 Range/Units 11:06 Calcium 8.7 (8.4-10.2) mg/dL Albumin 3.9 (3.5-5.1) g/dL Pituitary panel 07/12/24 Range/Units 11:06 Sodium 139 (137-145) mmol/L Potassium 4.4 (3.4-5.0) mmol/L Chloride 107 (98-107) mmol/L Carbon Dioxide 26 (22-30) mmol/L BUN 18 H (7-17) mg/dL Creatinine 0.83 (0.7-1.0) mg/dL Glucose 93 (65-110) mg/dL Calcium 8.7 (8.4-10.2) mg/dL Adrenal panel 07/12/24 Range/Units 11:06 Sodium 139 (137-145) mmol/L Potassium 4.4 (3.4-5.0) mmol/L Chloride 107 (98-107) mmol/L Carbon Dioxide 26 (22-30) mmol/L BUN 18 H (7-17) mg/dL Creatinine 0.83 (0.7-1.0) mg/dL Glucose 93 (65-110) mg/dL Calcium 8.7 (8.4-10.2) mg/dL Total Bilirubin 0.5 (0.2-1.3) mg/dL AST 18 (14-36) U/L ALT 11 (6-35) U/L Alkaline Phosphatase 63 (38-126) U/L Total Protein 7.0 (6.3-8.2) g/dL Albumin 3.9 (3.5-5.1) g/dL All other labs normal. Imaging Abdomen CT scan report/results: report reviewed and image reviewed
== END 2024-07-12 14:23 | disposition home or self-care (01) ==
PROVIDERS: Emergency Provider Emergency Medicine; PCP Family Medicine
DX: K43.6 Other and unspecified ventral hernia with obstruction, without gangrene (principal); M19.90 Unspecified osteoarthritis, unspecified site; F90.9 Attention-deficit hyperactivity disorder, unspecified type; F17.210 Nicotine dependence, cigarettes, uncomplicated
CPT/HCPCS: 36415; 74177; 80053; 81001; 81025; 83605; 85025; 96374; 96375; 99284; J1171; J2270; Q9967

== ENCOUNTER 2024-07-16 12:34 | Outpatient (CLI) | payer OTHER, SELFPAY ==
--- NOTE | 2024-07-16 12:51 | ECG_ITS ---
Test Date: 2024-07-16 13:04:16 Measurements Intervals [place] Rate: 86 P: 67 TN: 142 QRS: 66 QRSD: 79 T: 46 QT: 360 QTc: 432 Interpretive Statements SINUS RHYTHM No previous ECG available for comparison Electronically Signed On 07-16-2024 14:48:40 HAND STAMPER by Moncho Mcclendon M.D.
== END 2024-07-16 12:35 | disposition home or self-care (01) ==
LOC: ANHSURGERY 12:43
PROVIDERS: PCP Family Medicine; Visit Provider Surgery
DX: K46.9 Unspecified abdominal hernia without obstruction or gangrene (principal); F17.210 Nicotine dependence, cigarettes, uncomplicated; Z01.818 Encounter for other preprocedural examination
CPT/HCPCS: 36415; 86850; 86900; 86901; 93005